=== PATIENT | male | born 1960 | race African-American/Black ===

== ENCOUNTER 2021-12-29 08:47 | Emergency (ER) | payer BC, SELFPAY ==
[2021-12-29 08:54] VITALS: BP 147/115; PULSE 66; RESP 18; TEMP 35.8; O2SAT 100; BMI 26.4
[2021-12-29 09:06] VITALS: BP 136/92; PULSE 69; RESP 18; O2SAT 100
--- NOTE | 2021-12-29 09:08 | ED.GENADULT ---
HPI - General Adult General Time Seen by Provider: 09:08 Date Seen: 12/29/21 Chief complaint: Allergic Reaction Stated complaint: Allergic reaction Time Seen by Provider: 12/29/21 09:05 Source: patient Mode of arrival: ambulatory Limitations: no limitations History of Present Illness HPI narrative: PATIENT IS A PLEASANT 61-YEAR-OLD MALE who presents with allergic-type rash in his sawant. He had a treatment for a to the sawant and he had an allergic reaction of this before, he has had some weeping and blistering of the chin area around his goatee. The patient denies shortness of breath, swallowing difficulty, tongue or mouth swelling, breathing difficulty. Patient does take gout medication allopurinol as well as has hypertension and takes med for that he is allergic only to hair dye, similar to what he ext was exposed to with his sawant Related Data Previous Rx's Medication Instructions Recorded prednisone 20 mg tablet 20 mg PO BID #10 tabs 12/29/21 Allergies Allergy/AdvReac Type Severity Reaction Status Date / Time hair dye Allergy Uncoded 12/29/21 08:53 Review of Systems Status of ROS: Reports: 6 or more systems reviewed and unremarkable except as noted in History and below PFSH PFS Social History Smoking Status: Current some day smoker What tobacco products do you use: cigars Do you use any of these nicotine containing products: None Second hand tobacco smoke exposure: No How often do you have a drink containing alcohol: 2-3 times a week How many standard drinks containing alcohol do you have on a typical day: 3 or 4 How often do you have six or more drinks on one occasion: Never AUDIT-C Alcohol total score: 4 Non-prescribed substance use: denies use service: No Exam Narrative: Exam Narrative: Objective: Patient is alert or x3 O2 sat 100% on room air vital signs unremarkable His facial area shows a blistery allergic-type weeping rash around his goatee, crosses the midline, looks like an allergic-type process, no evidence of cellulitis Peripheral perfusion is good Patient denies any breathing or swallowing difficulty Const: Vital Signs, click to edit/add: Vital Signs - 24 hr 12/29/21 08:54 12/29/21 09:06 Temperature 96.5 F L Pulse Rate [Pulse Oximeter] 66 69 Respiratory Rate 18 18 Blood Pressure [Ri ght Upper Arm] 147/115 H 136/92 H Pulse Oximetry 100 100 Oxygen Delivery Me thod Room Air Room Air Course Vital Signs Vital signs: Initial Vital Signs Temperature 96.5 F L 12/29/21 08:54 Temperature Source Temporal Artery Scan 12/29/21 08:54 Pulse Rate 66 12/29/21 08:54 Pulse Rhythm 12/29/21 08:54 Respiratory Rate 18 12/29/21 08:54 Blood Pressure 147/115 H 12/29/21 08:54 Blood Pressure Mean 125 12/29/21 08:54 Pulse Oximetry 100 12/29/21 08:54 Oxygen Delivery Method 12/29/21 08:54 Vital Signs Temperature 96.5 F L 12/29/21 08:54 Pulse Rate 66 12/29/21 08:54 Respiratory Rate 18 12/29/21 08:54 Blood Pressure 147/115 H 12/29/21 08:54 Pulse Oximetry 100 12/29/21 08:54 Oxygen Delivery Method 12/29/21 08:54 Temperature 96.5 F L 12/29/21 08:54 Pulse Rate 69 12/29/21 09:06 Respiratory Rate 18 12/29/21 09:06 Blood Pressure 136/92 H 12/29/21 09:06 Pulse Oximetry 100 12/29/21 09:06 Oxygen Delivery Method 12/29/21 09:06 Medical Decision Making MDM Narrative Medical decision making narrative: Patient has allergic reaction, will continue Benadryl 25 mg t.i.d. over the next 3-4 days would give him prednisone 50 mg now and then start 20 b.i.d. for 5 days tomorrow, topical hydrocortisone 3 times a day, recheck with Primary Care not improving changes concerns worsening return to the ED specifically any difficulty breathing or swallowing problem. Discharge Plan Discharge Clinical Impression: Allergic reaction Patient Disposition: Home, Self-Care Condition: Stable Additional Instructions: Benadryl 25 mg 3 times a day x3 days, topical hydrocortisone 1% available [id number] 3 times a day to the rash area, prednisone 20 mg 2 times a day for 5 days starting tomorrow. Recheck with primary care as needed, return to the ED any trouble with breathing throat swelling tongue swelling or other concerns. Activity Level: No Restrictions Discharge Diet: Regular Prescriptions: New prednisone 20 mg tablet 20 mg PO BID Qty: 10 0RF Stand Alone Forms: [facility] Info Instructions
[2021-12-29] MEDS: predniSONE 10 MG TABLET 50 MG PO (09:23)
== END 2021-12-29 09:31 | disposition home or self-care (01) ==
LOC: ED 09:20
PROVIDERS: Emergency Provider Family Medicine
DX: T78.49XA Other allergy, initial encounter (principal)
CPT/HCPCS: 99282; 99283; J7512